=== PATIENT | male | born 1965 | race Caucasian/White ===

== ENCOUNTER 2017-05-06 12:29 | Emergency (ER) | payer MEDICARE ==
[2017-05-06 13:13] LABS: #Basophils 0.1 thou/uL (0.0-0.2); #Eosinphils 0.1 thou/uL (0.0-0.7); #Lymphocytes 3.4 thou/uL (1.20-3.40); #Monocytes 1.1 thou/uL (0.11-0.59); #Neutrophils 11.9 thou/uL (1.40-6.50); %Basophils 0.7 % (0.0-1.0); %Eosinophils 0.4 % (0.0-10.0); %Lymphocytes 20.7 % (21.0-51.0); %Monocytes 6.5 % (0.0-10.0); %Neutrophils 71.8 % (42.0-75.0); Hemoglobin 16.8 g/dL (14.0-18.0); Mean Corpuscular HGB CONC 32.4 g/dL (32.0-36.0); Mean Corpuscular Hemoglobin 28.6 pg (27.0-31.0); Mean Corpuscular Volume 88.2 fl (80.0-94.0); Mean Platelet Volume 6.9 fL (7.4-10.4); Platelet Count 192 thou/uL (130-400); RBC Distribution Width 12.6 % (11.5-14.5); Red Blood Cell (RBC) Count 5.88 mill/uL (4.70-6.10); White Blood Cell (WBC) Count 16.6 thou/uL (4.8-10.8)
[2017-05-06 13:27] LABS: Troponin I 0.039 ng/mL (< 0.028)
[2017-05-06] MEDS ORDERED: Nitroglycerin 2% Ointment 1 INCH/1 GM Packet ONE (13:34)
[2017-05-06 13:47] LABS: ALT (SGPT) 25 U/L (8-55); AST (SGOT) 24 U/L (5-34); Albumin 3.4 g/dL (3.5-5.0); Alkaline Phosphatase 98 U/L (40-150); Anion Gap 15 mmol/L (10-20); BUN (Urea Nitrogen) 10 mg/dL (8.4-25.7); Bilirubin, Total 0.6 mg/dL (0.2-1.2); Calc. Creatinine Clearance 0 mL/min (70-130); Calcium 9.1 mg/dL (7.8-10.44); Carbon Dioxide 24 mmol/L (22-29); Chloride 96 mmol/L (98-107); Estimated GFR-MDRD 74; Globulin 3.8 g/dL (2.4-3.5); Glucose 449 mg/dL (70-105); Potassium 4.6 mmol/L (3.5-5.1); Protein, Total 7.2 g/dL (6.0-8.3); Sodium 130 mmol/L (136-145)
[2017-05-06] MEDS ORDERED: Furosemide 40 MG/4 ML VIAL ONE (14:03)
[2017-05-06] MEDS ORDERED: Insulin Regular 300 UNITS/3 ML VIAL ONE (14:03)
[2017-05-06] MEDS ORDERED: Aspirin 325 MG TAB ONE (14:03)
--- NOTE | 2017-05-06 14:03 | RAD ---
PORTABLE AP CHEST X-RAY 05/06/2017 HISTORY: Dyspnea. Difficulty breathing. COMPARISON: 01/15/2013 FINDINGS: The cardiac silhouette is magnified by projection but does appear mildly enlarged. The pulmonary va sculature is within normal limits. A curvilinear metallic density again overlies the right mid lung zone, but is slightly more peripherally located on today's exam. The lungs are otherwise clear. T here has been no interval change from the prior exam. IMPRESSION: 1. No acute cardiopulmonary process. 2. Stable linear radiopaque density/foreign body overlying the right chest. POS: [facility]
== END 2017-05-06 14:45 | disposition short-term general hospital (02) ==
LOC: NAV ERS 12:29
DX: I24.9 Acute ischemic heart disease, unspecified (principal); I10 Essential (primary) hypertension; E11.9 Type 2 diabetes mellitus without complications; E78.5 Hyperlipidemia, unspecified; F17.210 Nicotine dependence, cigarettes, uncomplicated; Z79.84 Long term (current) use of oral hypoglycemic drugs; Z79.899 Other long term (current) drug therapy
CPT/HCPCS: 36415; 71010; 80053; 83880; 84484; 85025; 93005; 96374; 96375; J1815; J1940; J7620

== ENCOUNTER 2020-08-07 12:54 | Outpatient (CLI) | payer MEDICARE ==
[2020-08-07 13:21] LABS: INR-International Normal Ratio 2.3; Prothrombin Time 26.2 sec (12.0-14.7)
== END 2020-08-07 12:55 | disposition home or self-care (01) ==
LOC: NAV LABSP 12:54
PROVIDERS: ATTEND Internal Medicine Cardiovascular Disease
DX: Z51.81 Encounter for therapeutic drug level monitoring (principal); I48.91 Unspecified atrial fibrillation; I27.82 Chronic pulmonary embolism; C24.8 Malignant neoplasm of overlapping sites of biliary tract; Z79.01 Long term (current) use of anticoagulants
CPT/HCPCS: 85610

== ENCOUNTER 2020-11-20 01:06 | Emergency (ER) | payer MEDICARE ==
[2020-11-20] MEDS ORDERED: Lidocaine 1% w/Epinephrine 1:100K 30 ML VIAL ONE (01:18)
[2020-11-20 02:22] LABS: INR-International Normal Ratio 3.8; Prothrombin Time 37.5 sec (12.0-14.7)
[2020-11-20 02:34] LABS: Anion Gap 12 mmol/L (10-20); BUN (Urea Nitrogen) 26 mg/dL (8.4-25.7); Calc. Creatinine Clearance 0 mL/min (70-130); Calcium 8.6 mg/dL (7.8-10.44); Carbon Dioxide 31 mmol/L (22-29); Chloride 95 mmol/L (98-107); Glucose 77 mg/dL (70-105); Potassium 4.1 mmol/L (3.5-5.1); Sodium 134 mmol/L (136-145)
[2020-11-20 02:37] LABS: #Basophils 0.1 thou/uL (0.0-0.2); #Eosinphils 0.1 thou/uL (0.0-0.7); #Lymphocytes 2.2 thou/uL (1.20-3.40); #Monocytes 0.8 thou/uL (0.11-0.59); #Neutrophils 6.9 thou/uL (1.40-6.50); %Basophils 0.8 % (0.0-1.0); %Eosinophils 1.5 % (0.0-10.0); %Lymphocytes 21.8 % (21.0-51.0); %Monocytes 7.5 % (0.0-10.0); %Neutrophils 68.4 % (42.0-75.0); Hemoglobin 14.1 g/dL (14.0-18.0); Manual Diff?? NO; Mean Corpuscular HGB CONC 28.7 g/dL (32.0-36.0); Mean Corpuscular Hemoglobin 24.3 pg (27.0-31.0); Mean Corpuscular Volume 84.6 fL (78.0-98.0); Platelet Count 303 thou/uL (130-400); RBC Distribution Width 18.9 % (11.5-14.5); White Blood Cell (WBC) Count 10.1 thou/uL (4.8-10.8)
[2020-11-20 02:38] LABS: Anisocytosis SLIGHT = 6-15 cells (100X) (0-5/hpf); Microcytosis SLIGHT = 6-15 cells (100X) (0-5/hpf)
[2020-11-20] MEDS ORDERED: Bacitracin 1 PK ONE (02:43)
== END 2020-11-20 04:30 | disposition home or self-care (01) ==
LOC: NAV ERS 01:06
DX: S81.812A Laceration without foreign body, left lower leg, initial encounter (principal); R60.0 Localized edema; R53.81 Other malaise; W23.0XXA Caught, crushed, jammed, or pinched between moving objects, initial encounter
CPT/HCPCS: 12032; 80048; 85025; 85610; 94760

== ENCOUNTER 2020-12-05 11:26 | Outpatient (CLI) | payer MEDICARE ==
[2020-12-05 11:48] LABS: INR-International Normal Ratio 2.2; Prothrombin Time 25.2 sec (12.0-14.7)
[2020-12-05 11:58] LABS: Follow-up Coag Comp? YES; Follow-up Result - Coag REPORT FAXED
== END 2020-12-05 11:27 | disposition home or self-care (01) ==
LOC: NAV LABSP 11:26
PROVIDERS: ATTEND Family Medicine
DX: I87.2 Venous insufficiency (chronic) (peripheral) (principal)
CPT/HCPCS: 85610